=== PATIENT | male | born 1995 | race Caucasian/White ===

== ENCOUNTER 2018-04-25 19:40 | Emergency (ER) | payer SELFPAY ==
[~2018-04-25] VITALS: Ht 170.2 cm; Wt 59.0 kg
[2018-04-25 19:46] VITALS: Ht 170.2 cm; Wt 59.0 kg
[2018-04-25 22:30] VITALS: BP 105/56
== END 2018-04-25 22:30 | disposition home or self-care (01) ==
LOC: ED 19:40
DX: S16.1XXA Strain of muscle, fascia and tendon at neck level, initial encounter (principal); S30.811A Abrasion of abdominal wall, initial encounter; S50.812A Abrasion of left forearm, initial encounter; V89.2XXA Person injured in unspecified motor-vehicle accident, traffic, initial encounter; Y93.89 Activity, other specified; Y92.89 Other specified places as the place of occurrence of the external cause; Y99.8 Other external cause status
CPT/HCPCS: Q0092